=== PATIENT | male | born 1955 | race Caucasian/White ===

== ENCOUNTER 2016-10-03 16:01 | Inpatient (IN) ==
[2016-10-03 16:27] LABS: Basophils % 0.5 %; Eosinophils # 0.1 K/mcL (0.0-0.6); Eosinophils % 1.2 %; Hematocrit 38.8 % (37.5-50.1); Hemoglobin 14.1 g/dL (12.9-16.9); Immature Granulocytes % 0.6 % (0-4); Lymphocytes # 0.4 K/mcL (0.6-4.6); Lymphocytes % 5.6 %; Mean Corpuscular HGB Conc 36.3 g/dL (31.6-35.5); Mean Corpuscular Hemoglobin 33.3 pg (28.0-33.3); Mean Corpuscular Volume 91.5 fL (83.0-100.0); Mean Platelet Volume 8.8 fL (9.4-12.4); Monocytes # 0.7 K/mcL (0.0-1.3); Monocytes % 9.2 %; Neutrophils # 6.4 K/mcL (1.6-8.9); Platelet Count 234 K/mcL (140-400); Red Blood Count 4.24 M/mcL (4.19-5.50); Red Cell Distribution Width 13.4 % (11.5-14.5); Segmented Neutrophils % 82.9 %
[2016-10-03 16:35] LABS: INR 1.3; Prothrombin Time 14.3 Seconds (9.4-12.1)
[2016-10-03 16:38] LABS: Activated Partial Thrombo Time 49.6 Seconds (26.0-36.0)
[2016-10-03 16:39] LABS: BUN/Creatinine Ratio 11 (6-26); Blood Urea Nitrogen 13 mg/dL (8-26); Calcium 9.1 mg/dL (8.6-10.8); Carbon Dioxide 24 mEq/L (19-29); Chloride 103 mEq/L (98-109); Glucose 90 mg/dL (70-99); Osmolality,Calculated 282 (280-300); Potassium 3.1 mEq/L (3.5-4.5); Sodium 136 mEq/L (136-145); eGFR For African Americans > 60 (> 60); eGFR For Non-African Americans > 60 (> 60)
--- NOTE | 2016-10-03 16:43 | Emergency Department Note ---
START Narrative - START START: I examined this patient and my medical decision-making was reviewed with the Resident Physician. I agree with the documented findings, disposition and treatment plan as described except to the extent set forth below. Patient to ED with left arm weakness. Patient was recently admitted at [place] for diverticulitis. He went to the urgent care at the [place] today because he is having pain in his right arm. Once he got progressed to weakness. On exam he is laying in bed in no distress. He has a mild droop of the right side of the mouth. He has some erythematous areas in the left forearm. He has decreased range of motion secondary to pain and weakness. NIH score is 5. Plan. Stroke alert CT was negative. tele stroke was performed with Dr. Landeros at [facility]. She scores NIH of 1. Recommending stroke workup and no TPA secondary to NIH of only being 1 and improving symptoms. Patient does have rash in the left groin that seems consistent with shingles. We will start him on some acyclovir. We will admit for further stroke workup. CT only shows his already known uncomplicated diverticulitis. We will admit. 35 minutes of critical care exclusive of separately billable procedures
--- NOTE | 2016-10-03 16:48 | Emergency Department Note ---
Disposition Clinical Impression: Chest pain Qualifiers: Chest pain type: unspecified Qualified Code(s): R07.9 - Chest pain, unspecified Stroke Qualifiers: CVA mechanism: unspecified Qualified Code(s): I63.9 - Cerebral infarction, unspecified Zoster Qualifiers: Herpes zoster complications: without complications Qualified Code(s): B02.9 - Zoster without complications Disposition: Admitted As Inpatient Condition: Good Neuro HPI - General Chief Complaint: ED Neuro Symptoms/Deficit Stated Complaint: Left sided weakness Time Seen by Provider: 10/03/16 16:05 Source: patient, family Mode of arrival: EMS Limitations: no limitations Nursing Notes Reviewed: Yes Vital Signs Reviewed: Yes - History of Present Illness HPI Narrative: Patient with past medical history of prostate cancer treated with radiation 1 year ago as well as hypertension and hyperlipidemia and COPD presents for evaluation of left-sided deficits. Patient has a complicated history in that he was admitted for abdominal pain 2 days ago at outside hospital. Told that he had diverticulitis. Patient developed a rash today that is possibly related to zoster. Prior to presentation at the [facility] urgent care the patient developed chest pain that he described as a pressure across his chest. Patient was initially evaluated by the [facility] physician but during his stay developed left- sided deficits. Patient does describes pain in his left side as well as weakness and numbness to the left upper extremity. The patient has an abnormal finger to nose on the left side. Patient also has a right-sided facial droop. At this point the concern for stroke is secondary to new onset neuro symptoms was about less than an hour from presentation. Stroke workup will be initiated and the patient will be sent to CT for stroke CT. - Related Data Home Medications: Home Medications Medication Instructions Recorded Confirmed Gemfibrozil [Lopid] 600 mg PO BID 03/25/15 10/03/16 hydroCHLOROthiazide 25 mg PO QAM 03/25/15 10/03/16 [Hydrochlorothiazide] Albuterol Sulfate [Albuterol 2 puff IH QID PRN 10/03/16 10/03/16 Inhaler] Budesonide/Formoterol 160/4.5 1 puff IH BIDR 10/03/16 10/03/16 [Symbicort 160/4.5] Montelukast [Singulair] 10 mg PO HS 10/03/16 10/03/16 Sertraline [Zoloft] 50 mg PO DAILY 10/03/16 10/03/16 clonazePAM [Klonopin] 0.5 mg PO AD PRN 10/03/16 10/03/16 Previous Rx's Medication Instructions Recorded Tamsulosin [Flomax] 0.4 mg PO BID #180 cap.er.24h 10/01/16 Aspirin Enteric Coated [Aspirin EC] 81 mg PO DAILY #30 tablet. 10/05/16 levoFLOXacin [Levaquin] 500 mg PO DAILY #6 tab 10/05/16 metroNIDAZOLE [Flagyl] 500 mg PO TID #18 tab 10/05/16 valACYclovir [Valtrex] 1,000 mg PO Q8H #16 tab 10/05/16 Allergies/Adverse Reactions: Allergies Allergy/AdvReac Type Severity Reaction Status Date / Time Penicillins Allergy Rash Verified 10/03/16 16:04 sulfamethoxazole Allergy Vomiting Verified 10/03/16 16:04 [From Bactrim] trimethoprim [From Bactrim] Allergy Vomiting Verified 10/03/16 16:04 Review of Systems: CONSTITUTIONAL: No weight loss, fever, chills, weakness or fatigue. HEENT: Eyes: No visual changes. Ears, Nose, Throat: No hearing loss, difficulty talking or unable to swallow. SKIN: Rash CARDIOVASCULAR: chest pain, chest pressure and chest discomfort.No palpitations or edema. RESPIRATORY: No shortness of breath, cough or sputum. GASTROINTESTINAL: Abdominal pain GENITOURINARY: No burning on urination or hematuria. NEUROLOGICAL: Weakness as well as numbness and paresthesias. No change in bowel or bladder control. MUSCULOSKELETAL: No muscle pain, back pain, joint pain or stiffness. Weakness of the left side Past Medical History - Past Medical History Medical history: Reports: cancer, COPD, hyperlipidemia, hypertension Surgical history: Reports: cholecystectomy, other Psychiatric history: Reports: anxiety - Social History Smoking Status: Former smoker Smokeless Tobacco Status: No Alcohol use: Reports: none Drug use: Reports: none Physical Exam General appearance: NAD, conversant Eyes: anicteric sclerae, moist conjunctivae; PERRL HENT: Atraumatic; oropharynx clear with moist mucous membranes and no mucosal ulcerations Neck: Normal inspection; Trachea midline; FROM, supple Lungs: CTA, with normal respiratory effort and no intercostal retractions CV: RRR, no MRGs Abdomen: Soft, non-tender; no rebound or gaurding; see rash Extremities: No peripheral edema or extremity lymphadenopathy Skin: Dermatomal lesion with vesicles in the left inguinal region Psych: Appropriate mood and affect Neuro: alert and oriented to person, place and time - General General appearance: alert - Expanded Neurological Exam Patient oriented to: Present: person, place, time Speech: Present: fluid speech Cranial nerves: EOM function (II, III, IV, ): Normal, facial sensation (V): Normal, facial palsy (VII): Normal, gag reflex (IX): Normal, spinal accessory function (XI): Normal, tongue deviation (XII): Normal Cerebellar function: finger to nose: Abnormal Left, heel to herrera: Abnormal Left Motor strength - LUE: 3/5 Motor strength - RUE: 5/5 Motor strength - LLE: 4/5 Motor strength - RLE: 5/5 Sensory exam upper extremity: light touch: Normal Sensory exam lower extremity: light touch: Normal Coma Scale Eye Opening: Spontaneous Coma Scale Motor Response: Obeys Commands Coma Scale Verbal Response: Oriented Coma Scale Total: 15 Course - Reevaluation(s) Reevaluation #1: Patient symptoms continue to improve however he does have some residual symptoms that are clinically not as appreciated. - Consultations Consultation #1: [facility] neurology is on them and grades his stroke symptoms as a 1. His symptoms have improved during his stay and they recommend no TPA at this time as well as admission to [facility] for further stroke evaluation. Consultation #2: Discussed with Dr. Mo. Patient accepted for admission. Vital Signs Temperature 98.2 F 10/03/16 16:05 Pulse Rate 82 10/03/16 16:05 Respiratory Rate 20 10/03/16 16:05 Blood Pressure 151/85 10/03/16 16:05 O2 Sat by Pulse Oximetry 100 10/03/16 16:05 Temperature 97.6 F 10/05/16 07:33 Pulse Rate 74 10/05/16 07:33 Respiratory Rate 16 10/05/16 07:49 Blood Pressure 127/74 10/05/16 07:49 O2 Sat by Pulse Oximetry 96 10/05/16 07:49 Oxygen Delivery Oxygen Delivery Nasal Cannula Neuro Symptoms/Deficit - Medical Records Medical records reviewed: Yes I reviewed the patient's medical records. - Lab Data Lab results reviewed: Yes I reviewed the patient's lab results. Result diagrams: 10/05/16 04:22 10/05/16 04:22 Lab Results 10/03/16 10/03/16 10/03/16 Range/Units 16:02 16:20 16:20 WBC 7.7 (4.3-11.1) K/mcL RBC 4.24 (4.19-5.50) M/mcL Hgb 14.1 (12.9-16.9) g/dL Hct 38.8 (37.5-50.1) % MCV 91.5 (83.0-100.0) fL MCH 33.3 (28.0-33.3) pg MCHC 36.3 H (31.6-35.5) g/dL RDW 13.4 (11.5-14.5) % Plt Count 234 (140-400) K/mcL MPV 8.8 L (9.4-12.4) fL Immature Gran % 0.6 (0-4) % Seg Neutrophils % 82.9 % Lymphocytes % 5.6 % Monocytes % 9.2 % Eosinophils % 1.2 % Basophils % 0.5 % Neutrophils # 6.4 (1.6-8.9) K/mcL Lymphocytes # 0.4 L (0.6-4.6) K/mcL Monocytes # 0.7 (0.0-1.3) K/mcL Eosinophils # 0.1 (0.0-0.6) K/mcL Basophils # 0.0 (0.0-0.2) K/mcL PT 14.3 H (9.4-12.1) Seconds INR 1.3 APTT 49.6 H (26.0-36.0) Seconds Sodium (136-145) mEq/L Potassium (3.5-4.5) mEq/L Chloride (98-109) mEq/L Carbon Dioxide (19-29) mEq/L BUN (8-26) mg/dL Creatinine (0.72-1.25) mg/dL Est GFR ( Amer) (> 60) Est GFR (Non-Af Amer) (> 60) BUN/Creatinine Ratio (6-26) Glucose (70-99) mg/dL POC Glucose 99 H (58-89) Calculated Osmolality (280-300) Calcium (8.6-10.8) mg/dL Troponin I (0-0.03) ng/mL Urine Color (Yellow) Urine Clarity (Clear) Urine pH (5.0-8.0) pH Units Ur Specific [place] (1.010-1.025) Urine Protein (Neg-Trace) mg/dL Urine Glucose (UA) (Normal) mg/dL Urine Ketones (Negative) mg/dL Urine Blood (Negative) Urine Nitrite (Negative) Urine Bilirubin (Negative) Urine Urobilinogen (Normal) mg/dL Ur Leukocyte Esterase (Negative) Ur Culture Indicated? (NO) 10/03/16 10/03/16 10/03/16 Range/Units 16:20 16:20 16:35 WBC (4.3-11.1) K/mcL RBC (4.19-5.50) M/mcL Hgb (12.9-16.9) g/dL Hct (37.5-50.1) % MCV (83.0-100.0) fL MCH (28.0-33.3) pg MCHC (31.6-35.5) g/dL RDW (11.5-14.5) % Plt Count (140-400) K/mcL MPV (9.4-12.4) fL Immature Gran % (0-4) % Seg Neutrophils % % Lymphocytes % % Monocytes % % Eosinophils % % Basophils % % Neutrophils # (1.6-8.9) K/mcL Lymphocytes # (0.6-4.6) K/mcL Monocytes # (0.0-1.3) K/mcL Eosinophils # (0.0-0.6) K/mcL Basophils # (0.0-0.2) K/mcL PT (9.4-12.1) Seconds INR APTT (26.0-36.0) Seconds Sodium 136 (136-145) mEq/L Potassium 3.1 L (3.5-4.5) mEq/L Chloride 103 (98-109) mEq/L Carbon Dioxide 24 (19-29) mEq/L BUN 13 (8-26) mg/dL Creatinine 1.14 (0.72-1.25) mg/dL Est GFR ( Amer) > 60 (> 60) Est GFR (Non-Af Amer) > 60 (> 60) BUN/Creatinine Ratio 11 (6-26) Glucose 90 (70-99) mg/dL POC Glucose (58-89) Calculated Osmolality 282 (280-300) Calcium 9.1 (8.6-10.8) mg/dL Troponin I 0.00 (0-0.03) ng/mL Urine Color Yellow (Yellow) Urine Clarity Clear (Clear) Urine pH 7.5 (5.0-8.0) pH Units Ur Specific [place] 1.011 (1.010-1.025) Urine Protein Negative (Neg-Trace) mg/dL Urine Glucose (UA) Normal (Normal) mg/dL Urine Ketones Negative (Negative) mg/dL Urine Blood Negative (Negative) Urine Nitrite Negative (Negative) Urine Bilirubin Negative (Negative) Urine Urobilinogen Normal (Normal) mg/dL Ur Leukocyte Esterase Negative (Negative) Ur Culture Indicated? NO (NO) - Radiology Data Radiology results reviewed: Yes I reviewed the patient's radiology results. - EKG Data EKG attestation: Yes I reviewed and interpreted this EKG. EKG results narrative: EKG shows sinus rhythm with ventricular rate of 80. IL interval 176. QRS 97. QTC 424. No significant ST elevations or depressions. Nonspecific T-wave changes to the anterior leaflet are consistent with previous EKG of 03/23/15. NIH Stroke Scale - Level of Consciousness LOC: Alert - LOC Questions LOC Questions: Answers both correctly - LOC Commands LOC Commands: Performs both correctly - Best Gaze Best Gaze: Normal - Visual Visual: No visual loss - Facial Palsy Facial Palsy: Minor asymmetry on smiling, flattened nasolabial fold - Motor Arms Motor Arm-Left: Drift, does NOT hit bed Motor Arm-Right: No drift for 10 seconds - Motor Legs Motor Leg-Left: Drift, does NOT hit bed Motor Leg-Right: No drift for 5 seconds - Limb Ataxia Limb Ataxia: Present in ONE limb - Sensory Sensory: Mild to moderate loss, "not as sharp" - Best Language Best Language: No aphasia - Dysarthria Dysarthria: Normal - Extinction and Inattention Extinction and Inattention: Normal - NIHSS Total Score NIHSS Total Score: 5
[2016-10-03 17:15] LABS: Bilirubin,Urine Negative (Negative); Blood,Urine Negative (Negative); Clarity,Urine Clear (Clear); Color,Urine Yellow (Yellow); Glucose,Urine (UA) Normal (Normal); Ketones,Urine Negative (Negative); Leukocyte Esterase,Urine Negative (Negative); Nitrite,Urine Negative (Negative); PH,Urine 7.5 pH Units (5.0-8.0); Protein,Urine Negative (Neg-Trace); Specific Gravity,Urine 1.011 (1.010-1.025); Urobilinogen,Urine Normal (Normal)
[2016-10-03] MEDS ORDERED: *HR* Morphine 2 MG/ML SYRINGE IVP ONE (17:27)
[2016-10-03] MEDS ORDERED: Acyclovir 1,000 MG in D5% in Water 250 ML IVPB ONE (17:27)
[2016-10-03] MEDS ORDERED: Naloxone 0.4 MG/ML INJ IVP PRN (21:41)
--- NOTE | 2016-10-03 21:56 | Internal Med History&Physical ---
<Bossman Crabtree - Last Filed: 10/03/16 22:28> Date of Encounter: 10/03/16 Time of Encounter: 20:00 Assessment and Plan (1) Stroke Current visit: Yes Status: Acute 61-year-old male transferred from the [place] with left-sided extremity weakness and right facial droop. Initial evaluation NIH score of 5, [facility] neurologist Dr. Landeros scored NIH score of 1 and recommended inpatient neurology evaluation. - CT of the brain without contrast negative for acute findings. - Patient had improvement in right facial droop and improvement in left extremity weakness but continues to have left extremity weakness. - Denies prior history of strokes, TIAs or cardiac arrhythmias. Risk factors: Hypertension, hyperlipidemia Plan: - Neurology consult - Stat MRI of the brain - Neurologic examinations, - Aspirin daily - Atorvastatin 40 mg daily - Echocardiogram, carotid Doppler bilateral - quality assurance monitor final - EKG Qualifiers: CVA mechanism: unspecified Qualified Code(s): I63.9 - Cerebral infarction, unspecified (2) Hypertension Current visit: Yes Status: Acute Patient has a history of hypertension, current blood pressure stable. Plan: - Hold antihypertensive medications to allow permissive hypertension for 24 hours. Qualifiers: Qualified Code(s): I10 - Essential (primary) hypertension (3) Hypertriglyceridemia Current visit: Yes Status: Acute Lipid panel, continue home medications. (4) Diverticulitis Current visit: Yes Status: Acute Patient complaining of abdominal pain, CT of the abdomen demonstrates evidence of mild uncomplicated sigmoid colonic diverticulitis. Patient was on IV metronidazole and ciprofloxacin for treatment of diverticulitis yesterday and has scripts for oral medications. Plan - Continue metronidazole and ciprofloxacin IV. - Nothing by mouth. Qualifiers: Qualified Code(s): K57.92 - Diverticulitis of intestine, part unspecified, without perforation or abscess without bleeding (5) History of cancer Current visit: Yes Status: Acute (6) Zoster Current visit: Yes Status: Acute Patient presents with lower left abdominal pain and vesicular rash correlating with S1 dermatome. Plan: - By mouth Valtrex every 8 hours Qualifiers: Herpes zoster complications: without complications Qualified Code(s): B02.9 - Zoster without complications (7) Chest pain Current visit: Yes Status: Acute Patient presents with chest pain localized to the left lateral chest radiating up to the left arm and left shoulder blade. Recent workup at [facility] yesterday and discharge this morning. Patient continues to have left-sided chest pain which he states is exacerbated with activity improves with rest. He has not been taking aspirin. Pain has not fully resolved. Appears to be atypical in nature but the patient does have risk factors including chronic hypertension, hypertriglyceridemia. Plan: - EKG - quality assurance monitor final - Echocardiogram - Aspirin, statin, beta gregg - Patient may need chemical stress test if not complicated by stroke workup. - Troponins 3 Qualifiers: Chest pain type: unspecified Qualified Code(s): R07.9 - Chest pain, unspecified Internal Medicine - H&P: HPI Chief complaint: chest pain Admitted From: Emergency Dept Plans for Post Hospital Care: Home History of present illness: Mr. Eason is a 61 year old male history of hypertension, hyperlipidemia, hypertriglyceridemia, COPD arrived to the emergency department by [place] transportation with stroke like symptoms and chest pain. Patient arrived with left extremity weakness and right facial droop. Upon arrival was evaluated and found to have an NIH score of 5 and stroke protocol was initiated. [facility] and determined to have an NIH score of 1. The patient states that he was actually admitted yesterday to [facility] with chest pain starting over on his left chest radiating down his left arm associated with numbness into his left shoulder. He said he underwent cardiac workup and had an echocardiogram done that said he had stiffening of his heart but was told that there was nothing wrong at that time. He said at the time of discharge he was told he had an abnormality on his EKG and he continued to have his left-sided chest pain. He said that the chest pain is still the same it is exacerbated with activity and improves with rest and he has not been taking any medications to improve his symptoms. He has not been on aspirin recently. He said after discharge from the hospital he went to the [place] for further evaluation and then developed left upper and lower extremity weakness and numbness and there was concern for stroke and was transferred to our facility. Upon evaluation in emergency department was noted that he had right facial droop and weakness that is when the code stroke was initiated. After initial evaluation his symptoms significantly improved but have not completely resolved. He also complains of left lower abdominal pain for which she was receiving metronidazole and ciprofloxacin for diverticulitis as today. He also complains of a rash in his left groin, which has spread and was first noticed this morning. Past Med Surg Social Fam HX - Past Medical History Medical history: cancer, COPD, hyperlipidemia, hypertension Psychiatric history: anxiety - Past Surgical History Surgical History: cholecystectomy, other - Social History Smoking Status: Former smoker Smokeless Tobacco Status: No Alcohol use: none Drug use: none - Family History Mother Adopted: No Twin of Family Member: Yes, Fraternal Living Status: Hx Family Cardiac Disorders: Yes Internal Medicine - H&P: Meds Gemfibrozil [Lopid] 600 mg PO BID 03/25/15 [History] hydroCHLOROthiazide [Hydrochlorothiazide] 25 mg PO QAM 03/25/15 [History] Tamsulosin [Flomax] 0.4 mg PO BID #180 cap.er.24h 10/01/16 [Rx] Albuterol Sulfate [Albuterol Inhaler] 2 puff IH QID PRN 10/03/16 [History] Budesonide/Formoterol 160/4.5 [Symbicort 160/4.5] 1 puff IH BIDR 10/03/16 [ History] Montelukast [Singulair] 10 mg PO HS 10/03/16 [History] Sertraline [Zoloft] 50 mg PO DAILY 10/03/16 [History] Tizanidine HCl 4 mg PO Q8H PRN 10/03/16 [History] clonazePAM [Klonopin] 0.5 mg PO AD PRN 10/03/16 [History] Allergies Penicillins Allergy (Verified 10/03/16 16:04) Rash sulfamethoxazole [From Bactrim] Allergy (Verified 10/03/16 16:04) Vomiting trimethoprim [From Bactrim] Allergy (Verified 10/03/16 16:04) Vomiting All Systems PM: A 10-system review of systems was performed and is negative for pertinent findings except as documented above in the HPI. - Constitutional Constitutional: no chills, no fever(s), no night sweats - EENT Eyes: no change in vision, no discharge, no pain, no photophobia Ears: no ear discharge, no ear pain, no tinnitus Nose, mouth and throat: no dysphagia, no nasal discharge, no neck pain, no sore throat - Cardiovascular Cardiovascular ROS IM: chest pain, no diaphoresis, no dyspnea, no lightheadedness, no palpitations, no syncope - Respiratory Respiratory: no cough, no dyspnea, no wheezing, no excessive phlegm production - Gastrointestinal Gastrointestinal: abdominal pain, no diarrhea, no hematemesis, no hematochezia, no melena, no nausea, no vomiting - Musculoskeletal Musculoskeletal ROS IM: no numbness, no tingling - Integumentary Integumentary IM: no rash, no unusual bruising - Neurological Neurological ROS: focal weakness, numbness, tingling, no confusion, no convulsions, no tremor(s) - Hematologic/Lymphatic Hematologic/Lymphatic: no easy bruising - Constitutional Vitals: Temp Pulse Resp BP Pulse Ox 98.2 F 85 16 111/67 99 10/03/16 16:05 10/03/16 20:00 10/03/16 21:35 10/03/16 21:35 10/03/16 20:00 General appearance: Present: A&O X 3 Exam: General: Patient alert, awake, oriented 3, interactive, in no acute distress HEENT: Normocephalic, atraumatic, pupils equal reactive to light, nasal cavity patent and open septum median position, oral mucosa moist, uvula midline, neck supple trachea midline no palpable lymphadenopathy, no thyromegaly. Chest: Symmetric bilateral correlating with respiratory effort, effort nonlabored. Cardiac: Regular rate and rhythm, positive S1 and S2. no bruits appreciated bilateral carotids, Radial pulses 2+ bilateral, posterior tibial and dorsal pedal pulses 2+ bilateral. Respiratory: Clear to auscultation all lung younger Abdomen: Soft, nontender, positive bowel sounds, no palpable masses appreciated on examination, zoster rash appreciated on S1 dermatome on the left groin Extremities: Symmetric bilateral, bilateral lower extremities without erythema or edema, patient demonstrates weakness in flexion and extension of left extremities and mild discoordination of finger to nose at the left upper extremity. Right extremities 5/5 muscle strength. Neurologic: No focal deficits appreciated on examination. Face symmetric, EOMI , cranial nerves II through XII intact Internal Med - H&P Results - Labs CBC & Chem 7: 10/03/16 16:20 10/03/16 16:20 <Chepe-Silver Cm - Last Filed: 10/03/16 22:54> Date of Encounter: 10/03/16 Internal Medicine - H&P: HPI History of present illness: Mr. Eason is a 61 year old male All Systems PM: A 10-system review of systems was performed and is negative for pertinent findings except as documented above in the HPI. - Constitutional Vitals: Temp Pulse Resp BP Pulse Ox 97.9 F 66 20 152/77 100 10/03/16 21:51 10/03/16 21:51 10/03/16 21:51 10/03/16 21:51 10/03/16 21:51 Internal Med - H&P Results - Labs CBC & Chem 7: 10/03/16 16:20 10/03/16 16:20 - Attending Attestation I have seen and examined the patient. I have discussed about the patient with Dr. Crabtree. I have reviewed the orders and the note. On examination patient is awake and alert. He is able to provide history. Not in any distress. He is in discomfort due to abdominal pain and right side pain. is at bedside. The patient presented to the ED from the [place] for strokelike symptoms. He also had chest pain. Patient initially had a left upper lower extremity weakness and right facial droop. Stroke protocol was initiated and patient was [facility]. NIH score was determined to be 1. Recommended the stroke workup. Patient states he also recently had a cardiac workup done at an outside facility and his echo apparently showed that he had stiffening of his heart. Patient was discharged from outside facility after being worked up for chest pain, and then presented to the [place] again this morning with similar symptoms. He then developed the left-sided weakness. At present he does not have any facial droop, but does have left-sided weakness which is persistent. Initial workup including all imaging is negative. Patient also was found to have acute diverticulitis. MRI of brain is pending an echocardiogram and carotid Dopplers are pending. Patient will be continued on IV Levaquin and IV Flagyl for diverticulitis. He also has shingles on the left groin, and has been started on Valtrex. Patient and have been explained about his condition and plan of care. They understood and agreed. No unanswered questions. CODE STATUS full code.
[2016-10-03] MEDS ORDERED: Aspirin 325 MG TABLET PO ONE (22:01)
[2016-10-03] MEDS: *HR* Morphine 2 MG/ML SYRINGE IVP PRN (23:10)
[2016-10-03] MEDS: valACYclovir 500 MG TABLET PO SCH (23:55)
[2016-10-04] MEDS ORDERED: Acyclovir 750 MG in D5% in Water 250 ML IVPB SCH
[2016-10-04] MEDS: MetroNIDAZOLE 500 MG/100 ML 500 MG/100 ML BAG IVPB SCH ×2 (00:05→10:45)
[2016-10-04 01:39] LABS: Basophils % 0.4 %; Eosinophils # 0.1 K/mcL (0.0-0.6); Hematocrit 37.2 % (37.5-50.1); Hemoglobin 13.4 g/dL (12.9-16.9); Immature Granulocytes % 0.6 % (0-4); Lymphocytes # 0.4 K/mcL (0.6-4.6); Lymphocytes % 6.1 %; Mean Corpuscular Hemoglobin 33.6 pg (28.0-33.3); Mean Corpuscular Volume 93.2 fL (83.0-100.0); Mean Platelet Volume 9.5 fL (9.4-12.4); Monocytes # 0.7 K/mcL (0.0-1.3); Monocytes % 9.5 %; Neutrophils # 5.9 K/mcL (1.6-8.9); Platelet Count 205 K/mcL (140-400); Red Blood Count 3.99 M/mcL (4.19-5.50); Red Cell Distribution Width 13.7 % (11.5-14.5); Segmented Neutrophils % 82.4 %
[2016-10-04 01:49] LABS: Alanine Aminotransferase 24 Units/L (0-55); Albumin 3.4 g/dL (3.5-5.0); Alkaline Phosphatase 91 Units/L (38-126); Aspartate Amino Transferase 23 Units/L (5-34); BUN/Creatinine Ratio 10 (6-26); Blood Urea Nitrogen 12 mg/dL (8-26); Calcium 8.8 mg/dL (8.6-10.8); Carbon Dioxide 23 mEq/L (19-29); Chloride 104 mEq/L (98-109); Globulin 3.5 g/dL (2.4-3.5); Glucose 101 mg/dL (70-99); Osmolality,Calculated 284 (280-300); Potassium 2.9 mEq/L (3.5-4.5); Sodium 137 mEq/L (136-145); Total Protein 6.9 g/dL (6.0-8.3); eGFR For African Americans > 60 (> 60); eGFR For Non-African Americans > 60 (> 60)
[2016-10-04] MEDS: *HR* Morphine 2 MG/ML SYRINGE IVP PRN ×2 (02:56→06:40)
[2016-10-04] MEDS: *HR* Enoxaparin 40 MG/0.4 ML SYRINGE SQ SCH (06:41)
[2016-10-04] MEDS: valACYclovir 500 MG TABLET PO SCH ×3 (06:41→21:28)
[2016-10-04] MEDS ORDERED: Aspirin 81 MG TAB.CHEW PO SCH (09:00)
[2016-10-04] MEDS ORDERED: valACYclovir 500 MG TABLET PO SCH (09:00)
[2016-10-04] MEDS ORDERED: Levofloxacin 750 MG/150 ML 750 MG/150 ML BAG IVPB SCH (09:00)
[2016-10-04] MEDS: hydroCHLOROthiazide 25 MG TABLET PO SCH (10:45)
[2016-10-04] MEDS: Acetaminophen 325 MG TABLET PO PRN ×2 (10:47→19:53)
[2016-10-04] MEDS: Budesonide/Formoterol 160/4.5 MDI IH SCH ×2 (11:07→22:36)
[2016-10-04] MEDS ORDERED: *HR* HYDROcodone/Acet 5/325 mg TABLET PO PRN (12:31)
[2016-10-04] MEDS ORDERED: Magnesium Sulfate 1 GM in D5% in Water 100 ML IVPB ONE (13:49)
--- NOTE | 2016-10-04 15:09 | Electrocardiograph Report ---
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
--- NOTE | 2016-10-04 15:17 | Electrocardiograph Report ---
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
[2016-10-04] MEDS ORDERED: predniSONE 20 MG TABLET PO ONE (15:27)
[2016-10-04] MEDS: Gabapentin 100 MG CAPSULE PO SCH ×2 (15:57→19:53)
--- NOTE | 2016-10-04 17:22 | Neurology - Consult Note ---
Date of Encounter: 10/04/16 Time of Encounter: 17:20 Assessment and Plan (1) Left-sided muscle weakness Current Visit: Yes Status: Acute Unremarkable to identify definitive evidence of an acute cerebral infarct. He continues to experience weakness of the left arm and leg. However the MRI diffusion imaging did not reveal an acute diffusion deficit. The MRI flare images however did reveal scattered deep white matter hyperintensities. Echocardiogram and carotid Doppler studies were negative. He does however have stroke risk factors. My recommendation would be to treat him as his dose where an acute ischemic event, discontinue the aspirin and start him on Plavix 75 mg daily. He has been up ambulating and it is doubtful that he will need any additional physical therapy or occupational therapy. He should follow up with his primary care provider for ongoing management of his stroke risk factors. You may discharge him at your discretion. History of Present Illness HPI: Mr. Eason is a 61 year old male who is being seen for neurologic evaluation secondary to complaints of left-sided pain and weakness along with right facial droop. Apparently this gentleman has a history of hypertension, hyperlipidemia and hyper triglyceridemia who was transferred to [facility] from [facility]. Initially he had symptoms chest and left upper extremity pain and numbness and weakness. He is also reported had a right facial droop. The [facility] was notified and he was put on the stroke monitor. They determined that he only had an NIH of 1 is not a candidate for TPA. He states that currently he feels better but still professes some left upper and left lower extremity weakness. He has had an MRI scan of the brain which is negative for an acute diffusion deficit. Although the axial FLAIR does reveal scattered deep white matter hyperintensities consistent with microvascular ischemic change. Carotid duplex Doppler study was negative as well. Echocardiogram is negative. Past Med Surg Social Fam HX - Past Medical History Medical history: cancer, COPD, hyperlipidemia, hypertension Psychiatric history: anxiety - Past Surgical History Surgical History: cholecystectomy, other - Social History Smoking Status: Former smoker Smokeless Tobacco Status: No Alcohol use: none Drug use: none - Family History Mother Adopted: No Twin of Family Member: Yes, Fraternal Living Status: Hx Family Cardiac Disorders: Yes Medications and Allergies Gemfibrozil [Lopid] 600 mg PO BID 03/25/15 [History] hydroCHLOROthiazide [Hydrochlorothiazide] 25 mg PO QAM 03/25/15 [History] Tamsulosin [Flomax] 0.4 mg PO BID #180 cap.er.24h 10/01/16 [Rx] Albuterol Sulfate [Albuterol Inhaler] 2 puff IH QID PRN 10/03/16 [History] Budesonide/Formoterol 160/4.5 [Symbicort 160/4.5] 1 puff IH BIDR 10/03/16 [ History] Montelukast [Singulair] 10 mg PO HS 10/03/16 [History] Sertraline [Zoloft] 50 mg PO DAILY 10/03/16 [History] Tizanidine HCl 4 mg PO Q8H PRN 10/03/16 [History] clonazePAM [Klonopin] 0.5 mg PO AD PRN 10/03/16 [History] Allergies Penicillins Allergy (Verified 10/03/16 16:04) Rash sulfamethoxazole [From Bactrim] Allergy (Verified 10/03/16 16:04) Vomiting trimethoprim [From Bactrim] Allergy (Verified 10/03/16 16:04) Vomiting All Systems: A 10-system review of systems was performed and is negative for pertinent findings except as documented above in the HPI. Review of Systems: Ten point review of systems is consistent with a history of present illness and is otherwise negative. Physical Examination - Vital Signs Vital Signs: Initial Vital Signs Temp Pulse Resp BP Pulse Ox 98.2 F 82 20 151/85 100 10/03/16 16:05 10/03/16 16:05 10/03/16 16:05 10/03/16 16:05 10/03/16 16:05 - Neurologic Detailed motor examination: other (There is normal strength of the right upper and right lower extremity. There is weakness of the left upper and left lower extremity.) Motor examination - right side: 5/5: deltoids, biceps, triceps, wrist flexion, wrist extension, business professor, hip flexors, tibialis Anterior, quadriceps, toe extension (EHL), plantarflexion Motor examination - left side: 4/5: deltoids, biceps, triceps, wrist flexion, wrist extension, hip flexors, business professor, quadriceps, tibialis Anterior, toe extension (EHL), plantarflexion Detailed sensory examination: other (Light touch deep touch are globally intact. ) Reflex and gait examination: other (Tendon reflexes are 2/4 symmetrically in the biceps and triceps brachial radialis, patellar, and Achilles. No long tract signs are present.) Mental Status Examination: awake (He does seem to have a flat affect.), alert, oriented to person, oriented to place, oriented to time, follows commands appropriately, answers questions appropriately, no agnosia, no aphasia, no aproxia Cranial nerve examination: PERRL, EOMI, visual younger intact, corneal reflexes brisk symmetrically, sensory to face intact, mastication intact, no facial asymmetry is present, no dysarthria, hearing is intact symmetrically, soft palate elevates bilaterally upon phonation, gag reflex intact, flexes SCM and trapezius muscles symmetrically with full power, tongue protrudes midline, no atrophy or facial fasiculations present Cerebellar examination: no dysmetria, performs finger to nose and heel to herrera symmetrically without ataxia, no gait ataxia, no truncal ataxia, no difficulty with rapid alternating movements Results - Laboratory Findings CBC and BMP: 10/04/16 00:52 10/04/16 00:52 Abnormal lab findings: Abnormal lab results RBC 3.99 M/mcL (4.19-5.50) L 10/04/16 00:52 Hct 37.2 % (37.5-50.1) L 10/04/16 00:52 MCH 33.6 pg (28.0-33.3) H 10/04/16 00:52 MCHC 36.0 g/dL (31.6-35.5) H 10/04/16 00:52 Lymphocytes # 0.4 K/mcL (0.6-4.6) L 10/04/16 00:52 PT 14.3 Seconds (9.4-12.1) H 10/03/16 16:20 APTT 49.6 Seconds (26.0-36.0) H 10/03/16 16:20 Potassium 2.9 mEq/L (3.5-4.5) L 10/04/16 00:52 Glucose 101 mg/dL (70-99) H 10/04/16 00:52 POC Glucose 99 (58-89) H 10/03/16 16:02 Albumin 3.4 g/dL (3.5-5.0) L 10/04/16 00:52 Albumin/Globulin Ratio 1.0 (1.1-2.2) L 10/04/16 00:52 Consult Discharge Plan - Plan [facility]Primary Care Provider[facility] -
--- NOTE | 2016-10-04 17:44 | Internal Med Progress Note ---
Date of Encounter: 10/04/16 Time of Encounter: 14:30 - Assessment and plan (1) Left-sided muscle weakness Current Visit: Yes Status: Acute Assessment and plan: CT angiogram of chest, abdomen and pelvis was negative for aortic dissection. Brain MRI was negative for any acute intracranial process, there are areas of small vessel ischemic changes bilaterally. Appreciate neurology input. Stop aspirin. Start Plavix. Continue statin. PT OT consulted. No need for PTOT at discharge. 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 Continue Valtrex. Given significant neuropathy, I will start prednisone and Neurontin. Qualifiers: Herpes zoster complications: without complications Qualified Code(s): B02.9 - Zoster without complications (3) Diverticulitis Current Visit: Yes Status: Acute Assessment and plan: CT of the abdomen and pelvis revealed a single relative dense left sick by colonic diverticulum which shows [place]'s mesenteric fat ill-definition suggested acute inflammation. WBC 7.2. Continue oral Levaquin and Flagyl. Qualifiers: Diverticulitis site: large intestine Diverticulitis bleeding: without bleeding Diverticulitis complication: without perforation or abscess Qualified Code(s): K57.32 - Diverticulitis of large intestine without perforation or abscess without bleeding (4) Hypokalemia Current Visit: Yes Status: Acute Assessment and plan: Potassium at 2.9. Replete. Check potassium and magnesium (5) Hypertension Current Visit: No Status: Chronic Assessment and plan: Well-controlled. Continue home medications including hydrochlorothiazide. Qualifiers: Hypertension type: essential hypertension Qualified Code(s): I10 - Essential (primary) hypertension - Subjective Interval history: Patient complains of left-sided weakness and severe burning sensation on his back and left groin. - Constitutional Vitals: Temp Pulse Resp BP Pulse Ox 98.1 F 86 18 129/66 97 10/04/16 15:34 10/04/16 15:34 10/04/16 15:34 10/04/16 15:34 10/04/16 15:34 General appearance: Present: cooperative, mild distress (From pain.), A&O X 3, morbidly obese, pleasant, answers questions appropriately - Eye Eye exam: Present: sclera anicteric. Absent: PERRL - Neck Neck exam general surgery: Present: supple, trachea midline. Absent: lymphadenopathy - Respiratory Respiratory exam: Present: CTAB. Absent: wheezes - Cardiovascular Cardiovascular exam: Present: RRR - GI/Abdominal GI/Abdominal exam: Present: normal bowel sounds, soft, tenderness (Left lower quadrant tenderness. No guarding nor rebound.). Absent: distended - Extremities Exam Extremities exam: Absent: pedal edema - Neurological Exam Neurological exam: Present: alert, CN II-XII intact, oriented X3. Absent: motor sensory deficit (Paresthesias on his right face and left leg.), strengths equal and symetr throughout (Strength is 4 over 5 in left lower extremity. Rest of his extremities strength is 5 over 5.), facial droop, speech deficit - Skin Skin exam: Present: rash (There are multiple conglomerate of vesicular lesions at his LLQ/groin area that follows an L1-dermatoma. ). Absent: intact Internal Medicine: Result - Labs CBC & Chem 7: 10/04/16 00:52 10/04/16 00:52 Labs: Short CBC 10/04/16 Range/Units 00:52 WBC 7.2 (4.3-11.1) K/mcL Hgb 13.4 (12.9-16.9) g/dL Hct 37.2 L (37.5-50.1) % Plt Count 205 (140-400) K/mcL Neutrophils # 5.9 (1.6-8.9) K/mcL BMP 10/04/16 00:52 Sodium 137 Potassium 2.9 L Chloride 104 Carbon Dioxide 23 BUN 12 Creatinine 1.23 Glucose 101 H Calcium 8.8 Cardiac Enzymes 10/04/16 10/04/16 Range/Units 00:52 06:23 Troponin I 0.00 0.00 (0-0.03) ng/mL Liver Function 10/04/16 Range/Units 00:52 Total Bilirubin 1.0 (0.2-1.2) mg/dL AST 23 (5-34) Units/L ALT 24 (0-55) Units/L Alkaline Phosphatase 91 (38-126) Units/L Albumin 3.4 L (3.5-5.0) g/dL - ABG Interpretation ABG results: PT/INR, D-dimer PT 14.3 Seconds (9.4-12.1) H 10/03/16 16:20 Consult Discharge Plan - Plan [facility]errals: [facility] [Primary Care Provider] -
--- NOTE | 2016-10-04 17:49 | Carotid Imaging Report ---
Carotid Duplex Patient Name:Joseph Eason Order Number:[id number] Procedure Date:10/04/2016 Date:1955ge:61 yrs Gender:Male Lt BP:144 / 79 mmHg Rt.BP:144 / 79 mmHgHeart Rate: Location:[facility] Room #: 3B43 Forwarder Operator:Martha Bhatia Referring MD:Bossman Crabtree DO welder machine operator:Arthur dunlap MD:Abhinav Claros MD , FACS Primary Indications:Stroke Risk Factors Yes/No Hypertension Yes Hypercholesterolemia Yes Hx of CVA Unknown Smoker Previous Impressions: Findings: Bilateral carotid systems are essentially normal. Findings Prior Study: No prior study available for comparison. Carotid Results Right PSV EDV Assessment Proximal CCA 107 18 Normal Mid CCA 82 19 Normal Distal CCA 81 20 Normal Bifurcation 83 22 Normal Proximal ICA 84 20 Normal Mid ICA 78 28 Normal Distal ICA 93 33 Normal ECA 83 11 Normal Vertebral Artery 40 12 Antegrade Flow Left PSV EDV Assessment Proximal CCA 102 24 Normal Mid CCA 91 25 Normal Distal CCA 89 23 Normal Bifurcation 96 27 Normal Proximal ICA 89 22 Normal Mid ICA 101 30 Normal Distal ICA 73 26 Normal ECA 85 11 Normal Vertebral Artery 54 13 Antegrade Flow Ratio's Right ICA/CCA Ratio: 1.13 ICA/CCA Values: 93/82 Left ICA/CCA Ratio: 1.11 ICA/CCA Values: 101/91 Updated by Abhinav Claros MD, FACS on 10/04/2016 5:41:40 PM Abhinav Claros MD electronically signed on 10/04/2016 5:41:59 PM with status of Final
[2016-10-05 05:10] LABS: Basophils % 0.3 %; Hematocrit 39.1 % (37.5-50.1); Hemoglobin 14.2 g/dL (12.9-16.9); Immature Granulocytes % 0.5 % (0-4); Lymphocytes # 0.3 K/mcL (0.6-4.6); Lymphocytes % 4.7 %; Mean Corpuscular HGB Conc 36.3 g/dL (31.6-35.5); Mean Corpuscular Hemoglobin 33.6 pg (28.0-33.3); Mean Corpuscular Volume 92.4 fL (83.0-100.0); Mean Platelet Volume 9.4 fL (9.4-12.4); Monocytes # 0.4 K/mcL (0.0-1.3); Monocytes % 6.3 %; Neutrophils # 5.8 K/mcL (1.6-8.9); Platelet Count 240 K/mcL (140-400); Red Blood Count 4.23 M/mcL (4.19-5.50); Red Cell Distribution Width 13.7 % (11.5-14.5); Segmented Neutrophils % 88.2 %
[2016-10-05 05:32] LABS: BUN/Creatinine Ratio 16 (6-26); Blood Urea Nitrogen 17 mg/dL (8-26); Calcium 9.1 mg/dL (8.6-10.8); Carbon Dioxide 22 mEq/L (19-29); Chloride 109 mEq/L (98-109); Glucose 142 mg/dL (70-99); Magnesium 2.1 mg/dL (1.6-2.6); Osmolality,Calculated 290 (280-300); Potassium 4.2 mEq/L (3.5-4.5); Sodium 138 mEq/L (136-145); eGFR For African Americans > 60 (> 60); eGFR For Non-African Americans > 60 (> 60)
[2016-10-05] MEDS: valACYclovir 500 MG TABLET PO SCH (05:37)
[2016-10-05] MEDS: *HR* Enoxaparin 40 MG/0.4 ML SYRINGE SQ SCH (05:39)
[2016-10-05 07:38] VITALS: BP 127/74
[2016-10-05] MEDS: Budesonide/Formoterol 160/4.5 MDI IH SCH (07:49)
[2016-10-05] MEDS: hydroCHLOROthiazide 25 MG TABLET PO SCH (08:33)
[2016-10-05] MEDS: Gabapentin 100 MG CAPSULE PO SCH (08:34)
[2016-10-05] MEDS ORDERED: metroNIDAZOLE 500 MG TABLET PO SCH (09:00)
[2016-10-05] MEDS ORDERED: levoFLOXacin 500 MG TABLET PO SCH (09:00)
--- NOTE | 2016-10-05 09:33 | Discharge Summary ---
Date of Encounter: 10/06/16 Time of Encounter: 09:15 - Discharge Diagnosis (1) Left-sided muscle weakness Priority: Primary Status: Acute (2) Zoster Priority: Primary Status: Acute Qualifiers: Herpes zoster complications: without complications Qualified Code(s): B02.9 - Zoster without complications (3) Diverticulitis Priority: Primary Status: Acute Qualifiers: Diverticulitis site: large intestine Diverticulitis bleeding: without bleeding Diverticulitis complication: without perforation or abscess Qualified Code(s): K57.32 - Diverticulitis of large intestine without perforation or abscess without bleeding (4) Hypokalemia Priority: Primary Status: Resolved (5) Hypertension Priority: Secondary Status: Chronic Qualifiers: Hypertension type: essential hypertension Qualified Code(s): I10 - Essential (primary) hypertension - Discharge Medications Prescriptions: Aspirin Enteric Coated [Aspirin EC] 81 mg PO DAILY #30 tablet. levoFLOXacin [Levaquin] 500 mg PO DAILY #6 tab metroNIDAZOLE [Flagyl] 500 mg PO TID #18 tab valACYclovir [Valtrex] 1,000 mg PO Q8H #16 tab Home Medications: Gemfibrozil [Lopid] 600 mg PO BID 03/25/15 [History] hydroCHLOROthiazide [Hydrochlorothiazide] 25 mg PO QAM 03/25/15 [History] Tamsulosin [Flomax] 0.4 mg PO BID #180 cap.er.24h 10/01/16 [Rx] Albuterol Sulfate [Albuterol Inhaler] 2 puff IH QID PRN 10/03/16 [History] Budesonide/Formoterol 160/4.5 [Symbicort 160/4.5] 1 puff IH BIDR 10/03/16 [ History] Montelukast [Singulair] 10 mg PO HS 10/03/16 [History] Sertraline [Zoloft] 50 mg PO DAILY 10/03/16 [History] clonazePAM [Klonopin] 0.5 mg PO AD PRN 10/03/16 [History] Aspirin Enteric Coated [Aspirin EC] 81 mg PO DAILY #30 tablet. 10/05/16 [Rx] levoFLOXacin [Levaquin] 500 mg PO DAILY #6 tab 10/05/16 [Rx] metroNIDAZOLE [Flagyl] 500 mg PO TID #18 tab 10/05/16 [Rx] valACYclovir [Valtrex] 1,000 mg PO Q8H #16 tab 10/05/16 [Rx] Allergies/Adverse Reactions: Allergies Penicillins Allergy (Verified 10/03/16 16:04) Rash sulfamethoxazole [From Bactrim] Allergy (Verified 10/03/16 16:04) Vomiting trimethoprim [From Bactrim] Allergy (Verified 10/03/16 16:04) Vomiting Procedures/tests Complete & Pending: Procedures Performed prior 72 hours Category Date Time Status ECG 12 lead ECG [ECG] Routine Y 10/03/16 23:36 Completed Date of admission: 10/04/16 00:18 [facility] - Patient Status Disposition: Home, Self-Care Condition: Good Functional capacity at discharge: independent ambulation Overall status at discharge: patient is progressing back to baseline - Discharge Instructions Instructions: Aspirin (By mouth), Metronidazole (By mouth), Valacyclovir (By mouth), Levofloxacin (By mouth) Follow Up With: [facility] [Primary Care Provider[facility] - - Diet and Activity Activity: resume usual activities as tolerated Diet: low fat, low cholesterol, low salt diet Interval History: no numbness. no paresthesias. no complains. he is eating and ambulating well. Hospital course: Mr. Eason is a 61 year old male with past medical history of hypertension who presented with a chief complaint of left-sided weakness and numbness. CT angiogram of chest, abdomen and pelvis was negative for aortic dissection. Brain MRI was negative for any acute intracranial process, there are areas of small vessel ischemic changes bilaterally. CT of the abdomen and pelvis revealed a single relative dense left sick by colonic diverticulum which shows [place]'s mesenteric fat ill-definition suggested acute inflammation. Potassium 2.9. At discharge, his weakness improved. He was diagnosed with TIA and an started on Plavix and statin. Patient diagnosed with acute diverticulitis and started on oral Flagyl and oral Levaquin. His potassium was corrected and his numbness and paresthesias resolved. Physical examination revealed Zoster in L1 dermatoma, he was started on oral Valtrex. Plan: Patient follow-up with primary care physician next week. He should have a repeat potassium level. - Time Spent with Patient Total time spent providing and/or coordinating discharge services: - Constitutional Vitals: Temp Pulse Resp BP Pulse Ox 97.6 F 74 16 127/74 97 10/05/16 07:33 10/05/16 07:33 10/05/16 07:33 10/05/16 07:33 10/05/16 07:33 General appearance: Present: cooperative, A&O X 3, morbidly obese, pleasant, no acute distress, answers questions appropriately - Neck Neck exam general surgery: Present: supple, trachea midline. Absent: lymphadenopathy - Respiratory Respiratory exam: Present: CTAB - Cardiovascular Cardiovascular exam: Present: RRR - GI/Abdominal GI/Abdominal exam: Present: normal bowel sounds, soft, tenderness (minimal tenderness in LLQ). Absent: distended - Extremities Exam Extremities exam: Absent: pedal edema - Back Exam Back exam: Absent: CVA tenderness (L), CVA tenderness (R) - Neurological Exam Neurological exam: Present: alert, oriented X3, no focal deficits, strengths equal and symetr throughout. Absent: facial droop, speech deficit
== END 2016-10-05 11:52 | disposition home or self-care (01) | DRG 69 ==
LOC: 3BNU 16:01 → EMEROO 16:01 → 3BNU 21:36 → SUATTDRO 10-04 00:18
PROVIDERS: ADMIT Registered Nurse; ATTEND Internal Medicine

== ENCOUNTER 2017-02-24 19:47 | Observation (INO) ==
[2017-02-24] MEDS ORDERED: Nitroglycerin 25 MG/250 ML INFUS..BTL IVC ONE (19:56)
[2017-02-24] MEDS ORDERED: Nitroglycerin 25 MG/250 ML INFUS..BTL IVC SCH (20:00)
[2017-02-24 20:08] LABS: Basophils # 0.1 K/mcL (0.0-0.2); Basophils % 0.6 %; Eosinophils # 0.1 K/mcL (0.0-0.6); Eosinophils % 1.2 %; Hematocrit 37.4 % (37.5-50.1); Hemoglobin 13.7 g/dL (12.9-16.9); Immature Granulocytes % 0.6 % (0-4); Lymphocytes # 1.3 K/mcL (0.6-4.6); Lymphocytes % 15.2 %; Mean Corpuscular HGB Conc 36.6 g/dL (31.6-35.5); Mean Corpuscular Hemoglobin 33.8 pg (28.0-33.3); Mean Corpuscular Volume 92.3 fL (83.0-100.0); Mean Platelet Volume 9.2 fL (9.4-12.4); Monocytes # 0.9 K/mcL (0.0-1.3); Neutrophils # 5.9 K/mcL (1.6-8.9); Platelet Count 286 K/mcL (140-400); Red Blood Count 4.05 M/mcL (4.19-5.50); Red Cell Distribution Width 13.5 % (11.5-14.5); Segmented Neutrophils % 71.4 %
--- NOTE | 2017-02-24 20:08 | Emergency Department Note ---
Disposition Clinical Impression: Hypokalemia Chest pain Qualifiers: Chest pain type: unspecified Qualified Code(s): R07.9 - Chest pain, unspecified Disposition: Admitted As Inpatient Condition: Undetermined [facility]errals: [facility] [Primary Care Provider[facility] - Forms: ED Satisfaction Letter Time of Disposition: 22:28 Chest Pain HPI - General Chief Complaint: ED Chest Pain Stated Complaint: CP Time Seen by Provider: 02/24/17 19:47 Source: patient, EMS Mode of arrival: EMS Limitations: no limitations Vital Signs Reviewed: Yes Nursing Notes Reviewed: Yes - History of Present Illness HPI Narrative: 62-year-old male with history of COPD and TIA, arrives [facility] emergency department and transport from EMS after parenting sun onset of chest discomfort that is radiating into his back between his shoulder blades. The patient states it is sharp in nature and is relieved by 2 nitroglycerin administered by EMS. The patient is experiencing some shortness of breath. He did not have any relief with breathing treatments. The patient looks diaphoretic upon arrival to the emergency department EKG initially demonstrates no ST elevation. The patient admits to some associated nausea. He denies any other complaints at this time. He denies any history of DVT, PE, unilateral leg swelling, recent immobilization, recent surgery, history of WI. The patient has had no previous stents placed. Denies any other complaints. Is not sure when his last stress test was obtained. Pt complaint: chest pain Onset (ago): hour(s) (2.5) Time: 15:30 Duration: constant Pain Location: substernal Severity: moderate, severe Severity scale (1-10): 7 Quality: tightness, sharp Pain Radiation: back Improves with: nitroglycerin Worsens with: nothing Associated symptoms: Reports: nausea, diaphoresis, dyspnea Treatments prior to arrival chest pain: aspirin, nitroglycerin (x2), oxygen - Related Data On Oral Contraceptives: No Home Medications Medication Instructions Recorded Confirmed Gemfibrozil [Lopid] 600 mg PO BID 03/25/15 01/07/17 hydroCHLOROthiazide 25 mg PO QAM 03/25/15 01/07/17 [Hydrochlorothiazide] Albuterol Sulfate [Albuterol 2 puff IH QID PRN 10/03/16 01/07/17 Inhaler] Budesonide/Formoterol 160/4.5 1 puff IH DAILY 10/03/16 01/07/17 [Symbicort 160/4.5] Montelukast [Singulair] 10 mg PO HS 10/03/16 01/07/17 Sertraline [Zoloft] 50 mg PO DAILY 10/03/16 01/07/17 clonazePAM [Klonopin] 0.5 mg PO AD PRN 10/03/16 01/07/17 Tamsulosin [Flomax] 0.4 mg PO DAILY 01/07/17 01/07/17 Previous Rx's Medication Instructions Recorded Aspirin Enteric Coated [Aspirin EC] 81 mg PO DAILY #30 tablet. 10/05/16 Allergies Allergy/AdvReac Type Severity Reaction Status Date / Time Penicillins Allergy Rash Verified 02/24/17 19:53 sulfamethoxazole Allergy Vomiting Verified 02/24/17 19:53 [From Bactrim] trimethoprim [From Bactrim] Allergy Vomiting Verified 02/24/17 19:53 All systems ED: reviewed and negative except as stated. Constitutional: Denies: fever, chills, weakness ENT ED: Denies: congestion Cardiovascular: Reports: chest pain, dyspnea on exertion. Denies: orthopnea, edema, syncope Respiratory: Reports: dyspnea, wheezes (mild). Denies: cough Gastrointestinal: Reports: nausea. Denies: abdominal pain, vomiting, diarrhea, constipation, melena, hematochezia Genitourinary: Denies: urgency, dysuria Musculoskeletal: Reports: back pain. Denies: neck pain, arthralgia, myalgia Integumentary: Denies: rash Neurological: Denies: headache, weakness, numbness Chest Pain PMH - Past Medical History Medical history: Reports: cancer, COPD, hyperlipidemia, hypertension Surgical history: Reports: cholecystectomy, other Psychiatric history: Reports: anxiety - Social History Smoking Status: Never smoker Alcohol use: Reports: none Drug use: Reports: none Physical Exam - General Limitations: no limitations General appearance: alert, in no apparent distress - Head Head exam: atraumatic, normocephalic, normal inspection - Eye Eye exam: Present: normal appearance, PERRL, EOMI - ENT ENT exam: normal exam, normal oropharynx, mucous membranes moist - Neck Neck exam: Present: normal inspection, full ROM, trachea midline - Chest Chest inspection: Present: normal inspection, symmetric chest wall rise - Respiratory Respiratory exam: Present: other (Diminished breath sounds bilaterally. Mild wheezing on auscultation.) - Cardiovascular Cardiovascular exam: Present: regular rate, normal rhythm, normal heart sounds - Abdominal Exam Abdominal exam: Present: soft, Non-Tender, normal bowel sounds. Absent: tenderness, distention, guarding, rebound - Extremities Exam Extremities exam: Present: normal inspection, full ROM. Absent: tenderness, pedal edema - Neurological Exam Neurological exam: Present: alert, oriented X3, CN II-XII intact Course Vital Signs Temperature 97.8 F 02/24/17 19:54 Pulse Rate 71 02/24/17 19:54 Respiratory Rate 18 02/24/17 19:54 Blood Pressure 144/69 02/24/17 19:54 O2 Sat by Pulse Oximetry 99 02/24/17 19:54 Temperature 97.8 F 02/24/17 19:54 Pulse Rate 52 02/24/17 22:13 Respiratory Rate 16 02/24/17 22:13 Blood Pressure 109/70 02/24/17 22:13 O2 Sat by Pulse Oximetry 99 02/24/17 22:13 Oxygen Delivery Oxygen Delivery Nasal Cannula Chest Pain - MDM Narrative Medical decision making narrative: Workup here in the emergency department demonstrates hypokalemia. In addition the patient is feeling better after receiving nitroglycerin by IV drip. The patient's potassium was noted at 2.9. His troponin was negative for any acute findings. Given the concern for aortic dissection a CTA of the patient's chest abdomen pelvis was performed which did not streets no acute findings of the aorta. There was also no noted pulmonary embolus as well. The patient did have improvement with the nitroglycerin and with his past history I am concerned about ACS. The patient will be admitted to the hospitalist at this time, accepted by Dr. Mg. - Lab Data Lab results reviewed: Yes I reviewed the patient's lab results. Result diagrams: 02/24/17 20:00 02/24/17 20:00 Lab Results 02/24/17 02/24/17 02/24/17 Range/Units 20:00 20:00 20:00 WBC 8.3 (4.3-11.1) K/mcL RBC 4.05 L (4.19-5.50) M/mcL Hgb 13.7 (12.9-16.9) g/dL Hct 37.4 L (37.5-50.1) % MCV 92.3 (83.0-100.0) fL MCH 33.8 H (28.0-33.3) pg MCHC 36.6 H (31.6-35.5) g/dL RDW 13.5 (11.5-14.5) % Plt Count 286 (140-400) K/mcL MPV 9.2 L (9.4-12.4) fL Immature Gran % 0.6 (0-4) % Seg Neutrophils % 71.4 % Lymphocytes % 15.2 % Monocytes % 11.0 % Eosinophils % 1.2 % Basophils % 0.6 % Neutrophils # 5.9 (1.6-8.9) K/mcL Lymphocytes # 1.3 (0.6-4.6) K/mcL Monocytes # 0.9 (0.0-1.3) K/mcL Eosinophils # 0.1 (0.0-0.6) K/mcL Basophils # 0.1 (0.0-0.2) K/mcL PT 12.7 H (9.4-12.1) Seconds INR 1.2 APTT 44.3 H (26.0-36.0) Seconds Sodium 139 (136-145) mEq/L Potassium 2.9 L (3.5-4.5) mEq/L Chloride 105 (98-109) mEq/L Carbon Dioxide 20 (19-29) mEq/L BUN 19 (8-26) mg/dL Creatinine 1.18 (0.72-1.25) mg/dL Est GFR ( Amer) > 60 (> 60) Est GFR (Non-Af Amer) > 60 (> 60) BUN/Creatinine Ratio 16 (6-26) Glucose 115 H (70-99) mg/dL Calculated Osmolality 291 (280-300) Calcium 8.9 (8.6-10.8) mg/dL Troponin I (0-0.03) ng/mL 02/24/17 Range/Units 20:00 WBC (4.3-11.1) K/mcL RBC (4.19-5.50) M/mcL Hgb (12.9-16.9) g/dL Hct (37.5-50.1) % MCV (83.0-100.0) fL MCH (28.0-33.3) pg MCHC (31.6-35.5) g/dL RDW (11.5-14.5) % Plt Count (140-400) K/mcL MPV (9.4-12.4) fL Immature Gran % (0-4) % Seg Neutrophils % % Lymphocytes % % Monocytes % % Eosinophils % % Basophils % % Neutrophils # (1.6-8.9) K/mcL Lymphocytes # (0.6-4.6) K/mcL Monocytes # (0.0-1.3) K/mcL Eosinophils # (0.0-0.6) K/mcL Basophils # (0.0-0.2) K/mcL PT (9.4-12.1) Seconds INR APTT (26.0-36.0) Seconds Sodium (136-145) mEq/L Potassium (3.5-4.5) mEq/L Chloride (98-109) mEq/L Carbon Dioxide (19-29) mEq/L BUN (8-26) mg/dL Creatinine (0.72-1.25) mg/dL Est GFR ( Amer) (> 60) Est GFR (Non-Af Amer) (> 60) BUN/Creatinine Ratio (6-26) Glucose (70-99) mg/dL Calculated Osmolality (280-300) Calcium (8.6-10.8) mg/dL Troponin I 0.01 (0-0.03) ng/mL - Radiology Data Radiology results reviewed: Yes I reviewed the patient's radiology results. Abdomen/Pelvis CTA 02/24/17 00:00 IMPRESSION: 1. No aortic aneurysm or dissection. 2. No definite scan evidence for pulmonary embolus. 3. Diverticulosis without scan evidence for diverticulitis. D/ / Nicko Umaña MD / Nicko Umaña MD Interpreting Provider: Nicko Umaña MD Chest X-Ray 02/24/17 19:54 IMPRESSION: No acute process. D/ / Geraldo Shay MD / Geraldo Shay MD Interpreting Provider: Geraldo Shay MD Chest CTA 02/24/17 20:08 IMPRESSION: 1. No aortic aneurysm or dissection. 2. No definite scan evidence for pulmonary embolus. 3. Diverticulosis without scan evidence for diverticulitis. D/ / Nicko Umaña MD / Nicko Umaña MD Interpreting Provider: Nicko Umaña MD - EKG Data EKG attestation: Yes I reviewed and interpreted this EKG. EKG results narrative: Heart rate 72 bpm. [place] interval 143 ms. QTC 426 ms. Normal axis. Normal sinus rhythm. No ST elevation but mild ST depression noted in leads 2 as well as the 5 and V6. This does appear on previous EKGs a little bit but looks much worse this time. EKG also demonstrates nonspecific ST patterns noted in inferior leads as well as lead 1. EKG #2 at 2002: Heart rate 72 bpm. [place] interval 143 ms. QTC [address] elevation but noted ST depression noted in lead 2 and lateral leads. This is similar appearance but slightly improved from EKG performed at 1949. EKG #3:2216: Heart rate 60 bpm. [place] interval 189 ms. QTc 437 ms. Normal sinus rhythm with no ST elevation but again nonspecific changes noted from EKG performed at 2002. Critical Care Time Critical Care Time: Yes Total Critical Care Time: 35 Attestation: Critical care performed: Time is exclusive of separately billable procedures. Time includes: direct patient care, patient reassessment, coordination of patient care, interpretation of data (laboratory data, radiology data, and respiratory data), review of patient's medical records, medical consultation and documentation of patient care. Procedures included in critical care time: Procedures excluded from critical care time: Attestation Statement - Attestation Attestation: I, Tru Cosme MD, personally evaluated this patient and discussed their management with the resident physician. I reviewed the resident's note and agree with the documented findings, medical decision making, and plan of care. 62-year-old male presents to the emergency department with a complaint of acute onset of mid chest pain radiating to the back between the shoulder blades approximately 2.5 hours prior to arrival. Pain has been constant since onset and actually has gotten a little worse. He complains of shortness of breath associated with the pain. No diaphoresis. He does have a nonproductive cough which just started about the same time as the pain. No fever. On examination patient is a well-developed well-nourished male in no acute distress. He is alert and oriented 3. There is no cyanosis or diaphoresis. Chest is nontender to palpation. Breath sounds are equal bilaterally with a few rales in the left face but no wheezes noted. Heart regular rate and rhythm. Abdomen is soft and nontender with normal bowel sounds. No pedal edema. Labs reviewed. Chest x-ray negative. EKG shows a sinus rhythm with a rate of 72. There is anterolateral ST segment depression with T-wave inversion.. There is also some mild downsloping ST segment depression and T-wave changes inferiorly. CTA of the chest abdomen pelvis obtained and showed no evidence of pulmonary embolism. No evidence of aortic aneurysm or dissection. The hospitalist, Dr. Bucio, was consulted and accepted admission of the patient.
[2017-02-24 20:18] LABS: INR 1.2; Prothrombin Time 12.7 Seconds (9.4-12.1)
[2017-02-24 20:19] LABS: BUN/Creatinine Ratio 16 (6-26); Blood Urea Nitrogen 19 mg/dL (8-26); Calcium 8.9 mg/dL (8.6-10.8); Carbon Dioxide 20 mEq/L (19-29); Chloride 105 mEq/L (98-109); Glucose 115 mg/dL (70-99); Osmolality,Calculated 291 (280-300); Potassium 2.9 mEq/L (3.5-4.5); Sodium 139 mEq/L (136-145); eGFR For African Americans > 60 (> 60); eGFR For Non-African Americans > 60 (> 60)
[2017-02-24 20:20] LABS: Activated Partial Thrombo Time 44.3 Seconds (26.0-36.0)
[2017-02-24] MEDS ORDERED: 0.9 % Sodium Chloride 1,000 ML IVC SCH (23:45)
[2017-02-24] MEDS ORDERED: Ondansetron 4 MG/2 ML VIAL IVP PRN (23:51)
[2017-02-24] MEDS ORDERED: Acetaminophen 325 MG TABLET PO PRN (23:51)
[2017-02-24] MEDS ORDERED: *HR* Morphine 2 MG/ML SYRINGE IVP PRN (23:51)
[2017-02-24] MEDS ORDERED: Naloxone 0.4 MG/ML INJ IVP PRN (23:51)
--- NOTE | 2017-02-24 23:54 | Internal Med History&Physical ---
Date of Encounter: 02/24/17 Time of Encounter: 23:40 Assessment and Plan (1) Chest pain Current visit: Yes Status: Acute Atypical chest pain - rule out ACS Continue aspirin, Zocor, IV Morphine PRN, Nitroglycerin PRN EKG - sinus rhythm with no acute ST-T changes Troponin - 0.01, cycle Troponin BNP - 40 CTA chest and abdomen - negative for PE, negative for aortic aneurysm or dissection Echocardiogram () - LVEF 65%, mild diastolic dysfunction, normal RV size and function, no valvular dysfunction Stress test - pending Cardiac telemetry, labs in a.m., monitor closely Qualifiers: Chest pain type: unspecified Qualified Code(s): R07.9 - Chest pain, unspecified (2) Hypokalemia Current visit: Yes Status: Acute Hypokalemia - unclear etiology Replace potassium, check magnesium level (3) COPD (chronic obstructive pulmonary disease) Current visit: Yes Status: Acute COPD with mild acute exacerbation Attending Guera cotton and treatment, Symbicort, Singulair O2 via NC Qualifiers: COPD type: unspecified COPD Qualified Code(s): J44.9 - Chronic obstructive pulmonary disease, unspecified (4) Adenocarcinoma of prostate Current visit: Yes Status: Chronic 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 - s/p radiation therapy Patient follows up with oncology (5) Hypertriglyceridemia Current visit: Yes Status: Chronic Continue home dose of Gemfibrozil Lipid panel - pending (6) Hypertension Current visit: No Status: Chronic Essential hypertension, controlled, monitor Continue home dose of HCTZ Qualifiers: Hypertension type: essential hypertension Qualified Code(s): I10 - Essential (primary) hypertension (7) Anxiety and depression Current visit: Yes Status: Chronic Chronic anxiety and depression, stable Continue home dose of Zoloft, Klonopin PRN (8) DVT prophylaxis Current visit: Yes Status: Acute Heparin subcutaneous Internal Medicine - H&P: HPI Chief complaint: Chest pain Admitted From: Emergency Dept Plans for Post Hospital Care: Home History of present illness: Mr. Eason is a 62 year old male with past medical history of COPD, hypertension, depression, hyperlipidemia, prostate adenocarcinoma and anxiety. Patient presents to ED with complaints of chest pain. Examined in the room. Patient is awake and alert. Not in any distress. Able to provide all history. No family members at bedside. Patient states he developed chest pain at around 5 PM this evening while he was at work. He states pain started in the center of his chest and radiated to his back between his shoulder blades. Patient describes it as intermittent pain that is sharp at times, but is mostly a pressure type of pain. Sudden onset chest pain. Rates it 08/25. Patient complains of associated shortness of breath, which is still present at this time. He also complains of mild diaphoresis. Denies vomiting, palpitations or abdominal pain or headache or dizziness. No aggravating factors. Alleviated with nitroglycerin. No other associated symptoms. No other acute complaints. Initial workup in the ED is significant for hypokalemia. CTA of the chest and abdomen is negative. Troponin is negative. EKG shows normal sinus rhythm with no acute ST-T changes. Patient is being admitted for chest pain rule out ACS. He will need stress test. Echocardiogram was done recently and showed LVEF 65% with normal RV size and function and mild diastolic dysfunction. Patient has been sprained about his condition and plan of care in detail. He understood and agreed. No unanswered questions. CODE STATUS full code. Past Med Surg Social Fam HX - Past Medical History Medical history: cancer, COPD, hyperlipidemia, hypertension Psychiatric history: anxiety - Past Surgical History Surgical History: cholecystectomy, other - Social History Smoking Status: Never smoker Smokeless Tobacco Status: No Alcohol use: none Drug use: none - Family History Mother Adopted: No Twin of Family Member: Yes, Fraternal Living Status: Hx Family Cardiac Disorders: Yes Father Living Status: Hx Family Cancer: Yes (colon) Internal Medicine - H&P: Meds Gemfibrozil [Lopid] 600 mg PO BID 03/25/15 [History] hydroCHLOROthiazide [Hydrochlorothiazide] 25 mg PO QAM 03/25/15 [History] Albuterol Sulfate [Albuterol Inhaler] 2 puff IH QID PRN 10/03/16 [History] Budesonide/Formoterol 160/4.5 [Symbicort 160/4.5] 1 puff IH DAILY 10/03/16 [ History] Montelukast [Singulair] 10 mg PO HS 10/03/16 [History] Sertraline [Zoloft] 50 mg PO DAILY 10/03/16 [History] clonazePAM [Klonopin] 0.5 mg PO AD PRN 10/03/16 [History] Aspirin Enteric Coated [Aspirin EC] 81 mg PO DAILY #30 tablet. 10/05/16 [Rx] Tamsulosin [Flomax] 0.4 mg PO DAILY 01/07/17 [History] 3 Allergy/AdvReac Type Severity Reaction Status Date / Time Penicillins Allergy Rash Verified 02/24/17 19:53 sulfamethoxazole Allergy Vomiting Verified 02/24/17 19:53 [From Bactrim] trimethoprim [From Bactrim] Allergy Vomiting Verified 02/24/17 19:53 All Systems PM: A 10-system review of systems was performed and is negative for pertinent findings except as documented above in the HPI. - Constitutional Constitutional: fatigue, no fever(s), no weakness - EENT Eyes: no blurry vision - Cardiovascular Cardiovascular ROS IM: chest pain, diaphoresis, dyspnea, dyspnea on exertion, no edema, no lightheadedness, no orthopnea, no palpitations, no syncope - Respiratory Respiratory: dyspnea, dyspnea on exertion, chest congestion, no cough, no hemoptysis, no wheezing - Gastrointestinal Gastrointestinal: nausea, no abdominal pain, no bloating, no cramping, no diarrhea, no hematemesis, no hematochezia, no loose stools, no vomiting - Genitourinary Genitourinary ROS male: no dysuria - Musculoskeletal Musculoskeletal ROS IM: back pain - Neurological Neurological ROS: no abnormal gait, no confusion, no dizziness, no focal weakness, no loss of vision, no numbness, no tingling - Constitutional Vitals: Temp Pulse Resp BP Pulse Ox 97.8 F 52 16 108/62 99 02/24/17 19:54 02/24/17 22:13 02/24/17 22:57 02/24/17 22:57 02/24/17 22:13 General appearance: Present: cooperative, A&O X 3, pleasant, no acute distress, answers questions appropriately - Head Head exam: Present: atraumatic - Eye Eye exam: Present: EOMI - ENT ENT exam: Present: mucous membranes moist - Respiratory Respiratory exam: Present: wheezes (Mild bilateral). Absent: accessory muscle use, chest wall tenderness, rales, respiratory distress, rhonchi, tachypnea - Cardiovascular Cardiovascular exam: Present: RRR, +S1, +S2 - GI/Abdominal GI/Abdominal exam: Present: soft, no peritoneal signs. Absent: distended, firm , guarding, tenderness - Extremities Exam Extremities exam: Present: radial pulses palpable and symmetrical. Absent: calf tenderness, cyanotic, pedal edema - Neurological Exam Neurological exam: Present: alert, oriented X3, no focal deficits. Absent: facial droop, speech deficit Internal Med - H&P Results - Labs CBC & Chem 7: 02/24/17 20:00 12 00:17
[2017-02-25 00:44] LABS: BUN/Creatinine Ratio 18 (6-26); Blood Urea Nitrogen 18 mg/dL (8-26); Carbon Dioxide 21 mEq/L (19-29); Chloride 107 mEq/L (98-109); Chol/HDL Ratio 4.9 (0-4.9); Cholesterol 148 mg/dL (< 200); Glucose 104 mg/dL (70-99); HDL Cholesterol 30 mg/dL (40-59); LDL Cholesterol,Calculated 91 mg/dL (0-99); Osmolality,Calculated 288 (280-300); Potassium 3.1 mEq/L (3.5-4.5); Sodium 138 mEq/L (136-145); Triglycerides 133 mg/dL (< 150); eGFR For African Americans > 60 (> 60); eGFR For Non-African Americans > 60 (> 60)
[2017-02-25] MEDS ORDERED: Nitroglycerin 0.4 MG TAB.SUBL SL PRN (01:07)
[2017-02-25] MEDS: Aspirin Enteric Coated 81 MG Tablet PO SCH ×2 (01:09→09:50)
[2017-02-25] MEDS: Ipratropium/Albuterol Neb 3 ML IH SCH ×4 (04:53→11:28)
[2017-02-25] MEDS ORDERED: *HR* Heparin 5,000 UNIT/ML VIAL SQ SCH (06:00)
[2017-02-25] MEDS ORDERED: Regadenoson 0.4 MG/5 ML SYRINGE IVP ONE (06:40)
[2017-02-25] MEDS ORDERED: hydroCHLOROthiazide 25 MG TABLET PO SCH (09:00)
[2017-02-25] MEDS ORDERED: Budesonide/Formoterol 160/4.5 MDI IH SCH (10:00)
[2017-02-25] MEDS ORDERED: Potassium Chloride 40 MEQ, Lidocaine 1% 2 ML in D5% in Water 500 ML IVPB ONE (11:05)
--- NOTE | 2017-02-25 11:22 | Discharge Summary ---
Date of Encounter: 02/25/17 Time of Encounter: 11:20 - Discharge Diagnosis (1) Chest pain Priority: Primary Status: Acute Qualifiers: Chest pain type: unspecified Qualified Code(s): R07.9 - Chest pain, unspecified (2) Hypertension Priority: Secondary Status: Chronic Qualifiers: Hypertension type: essential hypertension Qualified Code(s): I10 - Essential (primary) hypertension (3) Hypokalemia Priority: Primary Status: Acute (4) COPD (chronic obstructive pulmonary disease) Priority: Secondary Status: Acute Qualifiers: COPD type: unspecified COPD Qualified Code(s): J44.9 - Chronic obstructive pulmonary disease, unspecified - Discharge Medications Home Medications: hydroCHLOROthiazide [Hydrochlorothiazide] 25 mg PO QAM 03/25/15 [History] Albuterol Sulfate [Albuterol Inhaler] 2 puff IH QID PRN 10/03/16 [History] Montelukast [Singulair] 10 mg PO HS 10/03/16 [History] clonazePAM [Klonopin] 0.5 mg PO AD PRN 10/03/16 [History] Aspirin Enteric Coated [Aspirin EC] 81 mg PO DAILY #30 tablet. 10/05/16 [Rx] Naproxen Sodium [Naproxen Sodium Ds] 550 mg PO BID PRN 02/25/17 [History] Omeprazole [PriLOSEC] 20 mg PO DAILY 02/25/17 [History] Tizanidine HCl 4 mg PO TID 02/25/17 [History] Tramadol HCl [Ultram] 50 mg PO BID PRN 02/25/17 [History] Allergies/Adverse Reactions: 3 Allergy/AdvReac Type Severity Reaction Status Date / Time Penicillins Allergy Rash Verified 02/24/17 19:53 sulfamethoxazole Allergy Vomiting Verified 02/24/17 19:53 [From Bactrim] trimethoprim [From Bactrim] Allergy Vomiting Verified 02/24/17 19:53 Procedures/tests Complete & Pending: Procedures Performed prior 72 hours Category Date Time Status NM warren perf SPECT multi [NM] Routine Exams 02/25/17 06:00 Taken ECG 12 lead ECG [ECG] AM 0600 Y 02/25/17 06:00 Completed ECG 12 lead ECG [ECG] Routine Y 02/24/17 22:16 Completed SP pharm nuclear stress Routine Y 02/24/17 23:53 Completed Date of admission: 02/24/17 22:46 Primary care physician: PCP MOE - Patient Status Disposition: Home, Self-Care Condition: Fair Overall status at discharge: patient is back to baseline - Discharge Instructions Instructions: Chest Pain (DC), Hypokalemia (DC), Chronic Obstructive Pulmonary Disease (DC) Follow Up With: MOE,PCP [Primary Care Provider] - 03/04/17 9:45 am Additional Instructions: As tolerated. - Diet and Activity Activity: resume usual activities as tolerated Diet: regular diet Hospital course: Mr. Eason is a 62 year old male with past medical history of COPD, hypertension, depression, hyperlipidemia, prostate adenocarcinoma and anxiety. Patient presents to ED with complaints of chest pain. Initial workup in the ED is significant for hypokalemia. CTA of the chest and abdomen is negative. Troponin is negative and remained negative EKG shows normal sinus rhythm with no acute ST-T changes. Patient underwent nuclear stress test which came back negative for any ischemic findings. We did have to replete the patient's potassium on day of discharge and recommended repeat of that potassium level by his PCP. Echocardiogram was done recently and showed LVEF 65% with normal RV size and function and mild diastolic dysfunction. He was stable for discharge on 02/25/2017 - Time Spent with Patient Total time spent providing and/or coordinating discharge services: - Constitutional Vitals: Temp Pulse Resp BP Pulse Ox 97.9 F 74 16 127/66 94 02/25/17 06:59 02/25/17 06:59 02/25/17 06:59 02/25/17 06:59 02/25/17 06:59 General appearance: Present: cooperative, A&O X 3, pleasant, no acute distress, answers questions appropriately Exam: GEN: NAD CVS: RRR. S1, S2, No m/r/g RESP: CTAB ABD: Soft, NT, ND, +BS EXT: No edema. 2+ DP, No rashes NEURO: Nonfocal
[2017-02-25 11:28] VITALS: BP 136/69
--- NOTE | 2017-02-25 15:46 | Electrocardiograph Report ---
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
--- NOTE | 2017-02-25 15:48 | Electrocardiograph Report ---
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
--- NOTE | 2017-02-25 15:55 | Electrocardiograph Report ---
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
== END 2017-02-25 13:25 | disposition home or self-care (01) ==
LOC: EMEROO 19:47 → 2NENU 19:47 → SUATTDRO 22:46 → 2NENU 23:36
PROVIDERS: ADMIT Internal Medicine; ATTEND Internal Medicine